=== PATIENT | male | born 1995 | race Caucasian/White ===

== ENCOUNTER 2021-04-07 20:31 | Emergency (ER) | payer SELFPAY ==
[~2021-04-07] VITALS: Ht 185.4 cm; Wt 109.1 kg
[2021-04-07] MEDS ORDERED: CRUTCHES MC (22:15)
[2021-04-07 22:30] VITALS: BP 127/74; PULSE 78; TEMP 97.9
== END 2021-04-07 22:30 | disposition home or self-care (01) ==
LOC: COL.ER 20:31
DX: M25.561 Pain in right knee (principal); Z87.828 Personal history of other (healed) physical injury and trauma
CPT/HCPCS: L1830; L1846

== ENCOUNTER 2021-08-06 02:27 | Emergency (ER) | payer SELFPAY ==
[~2021-08-06] VITALS: Ht 185.4 cm; Wt 104.5 kg
[~2021-08-06 02:27] MED LIST: CRUTCHES MC
[2021-08-06 02:57] LABS: BASO # 0.1 (0.0-0.2); BASO % 0.8 % (0.0-2.0); EOS # 0.4 (0.0-0.7); EOS % 4.2 % (0-4.0); GRAN # 6.1 (1.4-6.5); GRAN % 58.8 % (42.2-75.2); HEMATOCRIT 43.6 % (42.0-52.0); HEMOGLOBIN 15.4 g/dl (13.5-18.0); LYMPH # 3.1 (1.2-3.4); LYMPH % 30.1 % (20.0-51.0); MEAN CELL VOLUME 79 fl (80.0-100.0); MEAN CORPUSCULAR HEMOGLOBIN 28 pg (27.0-31.0); MEAN CORPUSCULAR HGB CONC 35 g/dl (33.0-37.0); MEAN PLATELET VOLUME 10.2 fl (7.4-10.4); MONO # 0.6 (0.1-0.6); MONO % 5.6 % (1.7-9.3); PLATELET COUNT 331 K/mm3 (130-400); RED BLOOD COUNT 5.51 M/mm3 (4.20-5.60); REDCELL DISTRIBUTION WIDTH-CV 13.1 % (11.5-14.5)
[2021-08-06 03:09] LABS: ALANINE AMINOTRANSFERASE 74 U/L (4-49); ALBUMIN 4.9 gm/dL (3.5-5.0); ALCOHOL(ethanol),MEDICAL 184 mg/dL; ALKALINE PHOSPHATASE 59 U/L (50-136); ANION GAP 20 mmol/L (7-16); AST,SGOT 54 U/L (15-37); BILIRUBIN,TOTAL 0.4 mg/dL (0.0-1.0); BLOOD UREA NITROGEN 11 mg/dL (9-20); CALCIUM 9.1 mg/dL (8.4-10.2); CARBON DIOXIDE 16 mmol/L (22-30); CHLORIDE 108 mmol/L (98-107); CREATININE, serum 0.69 (0.66-1.25); GLUCOSE 148 mg/dL (74-106); POTASSIUM 3.6 mmol/L (3.4-5.0); SODIUM 145 mmol/L (137-145); TOTAL PROTEIN 8.4 gm/dL (6.4-8.2)
[2021-08-06 03:19] LABS: ACETAMINOPHEN < 10 ug/mL (10-30); SALICYLATE < 1.0 mg/dL
[2021-08-06 03:53] LABS: COLLECTION METHOD CLEAN CATCH
[2021-08-06 04:00] LABS: MUCOUS Present /lpf; PH 6 (5-8); SQUAMOUS EPITHELIAL None Seen /hpf; URINE APPEARANCE Clear; URINE BACTERIA None Seen /hpf; URINE BILIRUBIN Negative (NEGATIVE); URINE BLOOD Negative (NEGATIVE); URINE COLOR Yellow; URINE GLUCOSE Negative (NEGATIVE); URINE KETONE Trace (NEGATIVE); URINE LEUKOCYTE ESTERASE Negative (NEGATIVE); URINE NITRATE Negative (NEGATIVE); URINE PROTEIN(semi-quant) Negative (NEGATIVE); URINE RBC None Seen /hpf; URINE UROBILINOGEN Negative (NEGATIVE)
[2021-08-06 04:05] LABS: TRICYCLIC ANTIDEPRESS URINE NEGATIVE
[2021-08-06 06:13] VITALS: TEMP 97.9
[2021-08-06 06:47] LABS: CALCIUM 8.4 mg/dL (8.4-10.2); CREATININE, serum 0.57 (0.66-1.25); POTASSIUM 3.7 mmol/L (3.4-5.0)
[2021-08-06 07:10] VITALS: BP 128/62; PULSE 80
== END 2021-08-06 07:15 | disposition home or self-care (01) ==
LOC: COL.ER 02:27
PROVIDERS: Emergency Medicine
DX: F10.129 Alcohol abuse with intoxication, unspecified (principal); Y90.6 Blood alcohol level of 120-199 mg/100 ml
CPT/HCPCS: J2405; J7030; J7120